=== PATIENT | male | born 1990 | race Caucasian/White ===

== ENCOUNTER → 2016-09-15 | Outpatient (CLI) | payer BC ==
[~2016-09-15] MED LIST: CIPRO500 MG PO; FLEXERIL10 MG PO; PERCOCET 5/31 TABLET PO
== END | disposition home or self-care (01) ==
LOC: RES 08:44
DX: J45.20 Mild intermittent asthma, uncomplicated (principal)
CPT/HCPCS: 94060; 94726; 94729

== ENCOUNTER 2017-04-22 20:18 | Emergency (ER) | payer BC ==
[~2017-04-22] VITALS: Ht 185.4 cm; Wt 116.6 kg
[2017-04-22] MEDS ORDERED: NORCO 7.5/321 TABLET PO (23:36)
[2017-04-22] MEDS ORDERED: MOTRIN800 MG PO (23:36)
[2017-04-22 23:50] VITALS: BP 131/95
== END 2017-04-22 23:50 | disposition home or self-care (01) ==
LOC: EME 20:18
PROC: 2W3CX1Z Immobilization of Right Lower Arm using Splint (ICD-10-PCS; principal; 2017-04-22)
DX: S62.511A Displaced fracture of proximal phalanx of right thumb, initial encounter for closed fracture (principal); W22.09XA Striking against other stationary object, initial encounter; Y93.67 Activity, basketball
CPT/HCPCS: 73140; 99281; 99283